=== PATIENT | male | born 1995 ===

== ENCOUNTER 2017-08-07 23:57 | Emergency (ER) | payer SELFPAY ==
[2017-08-08 00:22] VITALS: BMI 24.6
[2017-08-08 00:25] VITALS: BP 114/73; PULSE 62; TEMP 98.7; O2SAT 96
[2017-08-08] MEDS ORDERED: Albuterol 0.083% Inhal Sol (2.5 mg/3 mL) UD INH ONE (00:46)
--- NOTE | 2017-08-08 01:13 | ED PDOC ---
HPI: CCC, URI, Sore Throat Time Seen by Provider: 08/08/17 00:00 Chief Complaint (Nursing): Shortness Of Breath Chief Complaint (Provider): Cough History Per: Patient History/Exam Limitations: no limitations Onset/Duration Of Symptoms: Days (x1 week) Current Symptoms Are (Timing): Still Present Associated Symptoms: Cough (minimal). denies: Fever, Chills, Nausea, Vomiting, Diarrhea, Other (Chest pain or shortness of breath) Ear Symptoms: Bilateral: None Severity: Mild Additional Complaint(s): Keanu Barber is a 22 year old male, with a past medical history of pancreatitis and hyperlipidemia, who present to the emergency department complaining of postnasal drip and minimal cough onset for x1 week. He denies any fever, chills, nausea, vomit, diarrhea, chest pain, or shortness of breath. No further medical complaints. PMD: None provided. Past Medical History Reviewed: Historical Data, Nursing Documentation, Vital Signs Vital Signs: Last Vital Signs Temp 98.7 F 08/08/17 00:22 Pulse 62 08/08/17 00:22 Resp 17 08/08/17 01:10 BP 114/73 08/08/17 00:22 Pulse Ox 96 08/08/17 02:53 - Medical History PMH: Hyperlipidemia, Pancreatitis Denies: HIV, Chronic Kidney Disease - Surgical History Surgical History: No Surg Hx - Family History Family History: States: Unknown Family Hx - Home Medications Home Medications: Ambulatory Orders Medication Instructions Recorded Gemfibrozil [Lopid] 600 mg PO BID #60 tab 12/15/15 - Allergies Allergies/Adverse Reactions: Allergies Allergy/AdvReac Type Severity Reaction Status Date / Time No Known Allergies Allergy Verified 08/08/17 00:22 Review of Systems ROS Statement: Except As Marked, All Systems Reviewed And Found Negative Constitutional: Negative for: Fever, Chills ENT: Positive for: Other (postnasal drip) Cardiovascular: Negative for: Chest Pain Respiratory: Positive for: Cough (minimal). Negative for: Shortness of Breath Gastrointestinal: Negative for: Nausea, Vomiting, Diarrhea Physical Exam - Reviewed Nursing Documentation Reviewed: Yes Vital Signs Reviewed: Yes - Physical Exam Appears: Positive for: No Acute Distress Head Exam: Positive for: ATRAUMATIC, NORMAL INSPECTION Skin: Positive for: Normal Color, Warm, Dry Eye Exam: Positive for: Normal appearance, EOMI, PERRL ENT: Positive for: Normal ENT Inspection Neck: Positive for: Normal, Painless ROM, Supple Cardiovascular/Chest: Positive for: Regular Rate, Rhythm. Negative for: Murmur Respiratory: Positive for: Normal Breath Sounds. Negative for: Respiratory Distress Gastrointestinal/Abdominal: Positive for: Normal Exam, Soft. Negative for: Tenderness Extremity: Positive for: Normal ROM. Negative for: Deformity, Swelling Neurologic/Psych: Positive for: Alert, Oriented (x3). Negative for: Motor/ Sensory Deficits - ECG O2 Sat by Pulse Oximetry: 96 (RA) Pulse Ox Interpretation: Normal Medical Decision Making Medical Decision Making: Initial Impression: viral illness Initial Plan: --Albuterol Inhal Claire 2.5 mg INH --Rapid Strep Group A Antigen --reevaluation 02:25 --Upon provider evaluation patient is medically stable, and requires no further treatment in the ED at this time. Patient will be discharged home. Counseling was provided and all questions were answered regarding diagnosis and need for follow up There is agreement to discharge plan. Return if symptoms persist or worsen. Scribe Attestation: Documented by Long Patterson, acting as a scribe for Suly Helm MD Provider Scribe Attestation: All medical record entries made by the Scribe were at my direction and personally dictated by me. I have reviewed the chart and agree that the record accurately reflects my personal performance of the history, physical exam, medical decision making, and the department course for this patient. I have also personally directed, reviewed, and agree with the discharge instructions and disposition. Disposition - Clinical Impression Clinical Impression: Viral illness - Patient ED Disposition Is Patient to be Admitted: No Counseled Patient/Family Regarding: Diagnosis, Need For Followup - Disposition Referrals: [facility] [Outside] [facility] [Outside] Disposition: Routine/Home Disposition Time: 02:00 Condition: IMPROVED Additional Instructions: follow up with your primary doctor in 1-2 days return to the ED with any worsening or concerning symptoms Instructions: Viral Syndrome (ED) Forms: [facility] (Romansh) Print Language: GREENLANDIC
[2017-08-08 03:19] VITALS: RESP 17
== END 2017-08-08 02:36 | disposition home or self-care (01) ==
LOC: H.ER 23:57
DX: B34.9 Viral infection, unspecified (principal); E78.5 Hyperlipidemia, unspecified; K85.90 Acute pancreatitis without necrosis or infection, unspecified